=== PATIENT | female | born 1985 | race African-American/Black ===

== ENCOUNTER 2016-08-01 21:18 | Emergency (ER) | payer MEDICAID ==
[~2016-08-01] VITALS: Ht 170.2 cm; Wt 112.0 kg
[~2016-08-01 21:18] MED LIST: FLAG500T PO
[2016-08-01 21:20] VITALS: BP 174/106; PULSE 99; RESP 16; TEMP 98.7; O2SAT 97
[2016-08-01] MEDS ORDERED: MAGICADU2 SWISH-SPIT (22:18)
[2016-08-01] MEDS ORDERED: IBUP800T23 PO (22:18)
[2016-08-01] MEDS ORDERED: IBUPROFEN 800 MG TAB PO ONE (22:30)
--- NOTE | 2016-08-01 22:35 | PD ---
HPI Chief Complaint: Oral / Dental Pain or Problem Time Seen by Provider: 22:10 Travel History International Travel<30 days: No Contact w/Intl Traveler<30days: No Traveled to known affect area: No History of Present Illness HPI 31-year-old female presents for evaluation of dental pain. Symptoms started 2 weeks ago. She reports sharp pain in the left mandibular third molar which is worse when chewing. Partially relieved with Tylenol. She reports that a few weeks ago there was some soft tissue swelling around the gumline that has resolved. She has had no fevers, chills, drainage. She does endorse occasional tobacco use. She reports that she has an appointment on August 30 with a dentist. No other complaints. [facility] Past Medical History Medical History: Denies Significant Hx Asthma: Yes Anxiety: Yes Cancer: No Cardiovascular Problems: Yes (HTN) Cerebrovascular Accident: Yes (08/2013 - TIA ) Diabetes: No Diminished Hearing: No Gastrointestinal Disorders: No Genitourinary: No Headaches: Yes Hypertension: Yes Implanted Vascular Access Dvce: No Musculoskeletal: No Neurologic: Yes Psychiatric: No Reproductive: No Respiratory: Yes (ASTHMA) Immunizations Current: Yes Seizures: No Tetanus Vaccination: < 5 Years Influenza Vaccination: No ?: Unknown LMP: 1-5-17 : 4 Para: 3 Miscarriage: 1 Tubal Ligation: Yes Past Surgical History Surgical History: No Previous Surgery Other Surgery: No Family History Family Myocardial Infarction: Yes (GRANDMOTHER) Social History Alcohol Use: Yes (SOCIALLY) Tobacco Use: No Substance Use: No Allergies-Medications (Allergen,Severity, Reaction): Coded Allergies: Penicillin (Verified Allergy, Severe, Anaphylaxis, 08/01/16) Ultram (Verified Allergy, Severe, HIVES, 08/01/16) Reported Meds & Prescriptions Reported Meds & Active Scripts Active Ibuprofen 800 Mg Tab 800 Mg PO Q6HR PRN Magic Mouthwash Adult Liq (Multi-Ingredient Mouthwash/Gargle) 120 Ml Susp 5 Ml SWISH-SPIT ACHS Each 5 mL contains: Nystatin 200,000 units, Diphenhydramine 4.25 mg, Viscous Lidocaine 10 mg, Alarcon syrup 0.8 mL Review of Systems General / Constitutional: No: Fever, Chills HENT: Positive: Dental Difficulties Physical Exam Narrative GENERAL: Well-developed well-nourished female in no acute distress SKIN: Warm and dry. No facial soft tissue swelling or erythema HEAD: Atraumatic. Normocephalic. EYES: Pupils equal and round. No scleral icterus. No injection or drainage. ENT: No nasal bleeding or discharge. Mucous membranes pink and moist. Left mandibular third molar is partially erupting. It is tender to palpation. There is no erythema, induration, fluctuance, drainage or trismus. NECK: Trachea midline. No JVD. No lymphadenopathy, no submandibular edema CARDIOVASCULAR: Regular rate and rhythm. No murmur appreciated. RESPIRATORY: No accessory muscle use. Clear to auscultation. Breath sounds equal bilaterally. Data Data Last Documented VS Vital Signs Date Time Temp Pulse Resp B/P Pulse Ox O2 Delivery O2 Flow Rate FiO2 08/01/16 22:07 16 08/01/16 21:20 98.7 99 174/106 97 Room Air Orders Ibuprofen (Motrin) (08/01/16 22:30) MDM Medical Decision Making Medical Screen Exam Complete: Yes Emergency Medical Condition: Yes Medical Record Reviewed: Yes Differential Diagnosis Molar eruption, molar impaction, dental caries, periodontal abscess Narrative Course 31-year-old female presents with dental pain for 2 weeks. Examination reveals that her left mandibular third molar is partially erupting. There is no evidence of infection. Recommended outpatient follow-up with a dentist. She is being discharged with ibuprofen and Magic mouthwash for pain control. Diagnosis Primary Impression: Tooth eruption Referrals: Dentist Additional Instructions: Medication as needed. Follow up with a dentist as scheduled. Return for any emergent medical conditions. Med/Other Pt SpecificInfo: Prescription(s) given Scripts Ibuprofen 800 Mg [id number] Mg PO Q6HR PRN (PAIN) #40 TAB Ref 0 Prov:Adama Fletcher MD 08/01/16 Oorydaua-Hyyrykezxrkhbqb-Dtpfnugjd Liq (Magic Mouthwash Adult Liq)120 Ml Susp5 Ml SWISH-SPIT ACHS #240 ML Ref 0 Each 5 mL contains: Nystatin 200,000 units, Diphenhydramine 4.25 mg, Viscous Lidocaine 10 mg, Alarcon syrup 0.8 mL Prov:Adama Fletcher MD 08/01/16 Disposition: 01 DISCHARGE HOME Condition: Stable Corby Alvarez Aug 01, 2016 22:35
== END 2016-08-01 22:58 | disposition home or self-care (01) ==
LOC: NEPB 21:18
DX: K00.6 Disturbances in tooth eruption (principal); I10 Essential (primary) hypertension; Z86.73 Personal history of transient ischemic attack (TIA), and cerebral infarction without residual deficits
CPT/HCPCS: 99282

== ENCOUNTER 2016-08-15 15:27 | Emergency (ER) | payer MEDICAID ==
[~2016-08-15] VITALS: Ht 170.2 cm; Wt 110.0 kg
[~2016-08-15 15:27] MED LIST changes: -FLAG500T PO; +IBUP800T23 PO; +MAGICADU2 SWISH-SPIT
[2016-08-15 15:29] VITALS: BP 190/107; PULSE 90; RESP 12; TEMP 98.6; O2SAT 100
[2016-08-15 15:58] VITALS: BP 141/86; PULSE 86
--- NOTE | 2016-08-15 17:31 | PD ---
HPI Chief Complaint: Skin Problem Time Seen by Provider: 17:30 Travel History International Travel<30 days: No Contact w/Intl Traveler<30days: No Traveled to known affect area: No History of Present Illness HPI 31-year-old female presents to the emergency Department with complaint of right lower leg redness and swelling for 1 week after possibly being bit by a bug. Denies paresthesias, loss of sensation, decreased range of motion, decreased strength to affected extremity. Denies nausea, vomiting. Reports having fever 3 days ago and her mom gave her ibuprofen and Tylenol for the fever. Denies having fever since. Has been cleaning the area with witch tiffany with some improvement. Is not any other treatments or medications to alleviate her symptoms. Allergies to penicillin and Ultram. History of hypertension. Dr. Pablo is primary care provider. No other modifying factors or associated signs and symptoms. PFSH Past Medical History Asthma: Yes Anxiety: Yes Cancer: No Cardiovascular Problems: Yes (HTN) Cerebrovascular Accident: Yes (08/2013 - TIA ) Diabetes: No Diminished Hearing: No Gastrointestinal Disorders: No Genitourinary: No Headaches: Yes Hypertension: Yes Implanted Vascular Access Dvce: No Musculoskeletal: No Neurologic: Yes Psychiatric: No Reproductive: No Respiratory: Yes (ASTHMA) Immunizations Current: Yes Seizures: No ?: Not LMP: 08/10/16 : 4 Para: 3 Miscarriage: 1 Tubal Ligation: Yes Past Surgical History Other Surgery: No Social History Alcohol Use: Yes (SOCIALLY) Tobacco Use: No Substance Use: No Allergies-Medications (Allergen,Severity, Reaction): Coded Allergies: Penicillin (Verified Allergy, Severe, Anaphylaxis, 08/01/16) Ultram (Verified Allergy, Severe, HIVES, 08/01/16) Reported Meds & Prescriptions Reported Meds & Active Scripts Active Ibuprofen 800 Mg Tab 800 Mg PO Q6HR PRN Clindamycin (Clindamycin HCl) 150 Mg Cap 450 Mg PO Q6H 10 Days Ibuprofen 800 Mg Tab 800 Mg PO Q6HR PRN Magic Mouthwash Adult Liq (Multi-Ingredient Mouthwash/Gargle) 120 Ml Susp 5 Ml SWISH-SPIT ACHS Each 5 mL contains: Nystatin 200,000 units, Diphenhydramine 4.25 mg, Viscous Lidocaine 10 mg, Alarcon syrup 0.8 mL Review of Systems Except as stated in HPI: all other systems reviewed are Neg Physical Exam Narrative GENERAL: Well-nourished, well-developed patient, in no acute distress; afebrile , nontoxic-appearing SKIN: There is an indurated area to the lateral aspect of the right lower leg which measures about 4 cm in diameter. The area is erythemic and with warmth to touch and slightly edematous; there is a small fluctuant pustule to the area. No drainage. There is a zone of inflammation around it but no lymphangitis. HEAD: Atraumatic. Normocephalic. EYES: Pupils equal and round. No scleral icterus. No injection or drainage. ENT: Mucosa pink and moist. Airway patent. NECK: Trachea midline. CARDIOVASCULAR: Regular rate. RESPIRATORY: No accessory muscle use. GASTROINTESTINAL: Obese. MUSCULOSKELETAL: No obvious deformities. No clubbing. No cyanosis. No edema. NEUROLOGICAL: Awake and alert. Oriented 3. No obvious cranial nerve deficits. Motor grossly within normal limits. Normal speech. PSYCHIATRIC: Appropriate mood and affect; insight and judgment normal. Data Data Last Documented VS Vital Signs Date Time Temp Pulse Resp B/P Pulse Ox O2 Delivery O2 Flow Rate FiO2 08/15/16 15:58 86 141/86 08/15/16 15:29 98.6 12 100 Room Air Orders Wound Culture And Gram Stain (08/15/16 17:36) [facility] Medical Decision Making Medical Screen Exam Complete: Yes Emergency Medical Condition: Yes Medical Record Reviewed: Yes Differential Diagnosis Cellulitis, folliculitis, abscess, bug bite Narrative Course 31-year-old female with a cellulitic area to the right lower leg. There is a small pustule to the middle of the erythemic area. The pustule was broken open and a wound culture obtained. Wound culture pending. Patient is afebrile and nontoxic-appearing. Reports having fever 3 days ago. I offered the patient nonnarcotic for pain in the ear and she declined at this time. Clindamycin, ibuprofen prescribed for home. Patient is medically cleared and stable for discharge. Discussed reasons to return to the emergency department. Instructed patient to follow up with primary care provider. Patient agrees with treatment plan. The patients vital signs are stable and the patient is stable for outpatient follow-up and treatment. Patient discharged home, stable and in no acute distress. Diagnosis Primary Impression: Cellulitis of leg, right Referrals: Primary Care Physician Patient Instructions: Cellulitis (ED), General Instructions Departure Forms: Tests/Procedures, Work Release Enter return to work date: Aug 16, 2016 Additional Instructions: Complete full course of antibiotics Warm compresses to the affected area Keep area clean and dry Ibuprofen or Tylenol as instructed and as needed for pain and inflammation Follow-up with primary care provider Return to emergency department immediately with worsening of symptoms Med/Other Pt SpecificInfo: Prescription(s) given Scripts Ibuprofen 800 Mg Ogu214 Mg PO Q6HR PRN (PAIN) #30 TAB Ref 0 Prov:Flora Milner 08/15/16 Clindamycin 150 Mg [id number] Mg PO Q6H 10 Days Ref 0 Prov:Flora Milner 08/15/16 Disposition: 01 DISCHARGE HOME Condition: Stable Flroa Milner Aug 15, 2016 17:31
[2016-08-15] MEDS ORDERED: CLIN1CAP5 PO (17:32)
[2016-08-15] MEDS ORDERED: IBUP800T23 PO (17:32)
== END 2016-08-15 18:11 | disposition home or self-care (01) ==
LOC: NEPB 15:27
DX: L03.115 Cellulitis of right lower limb (principal); B95.62 Methicillin resistant Staphylococcus aureus infection as the cause of diseases classified elsewhere; I10 Essential (primary) hypertension; Z87.09 Personal history of other diseases of the respiratory system; Z86.59 Personal history of other mental and behavioral disorders; Z86.73 Personal history of transient ischemic attack (TIA), and cerebral infarction without residual deficits; Z86.69 Personal history of other diseases of the nervous system and sense organs
CPT/HCPCS: 86403; 87070; 87186; 87205; 99283

== ENCOUNTER 2016-09-14 08:35 | Emergency (ER) | payer MEDICAID ==
[~2016-09-14] VITALS: Ht 170.2 cm; Wt 115.0 kg
[~2016-09-14 08:35] MED LIST changes: +CLIN1CAP5 PO
[2016-09-14 08:37] VITALS: BP 170/102; PULSE 100; RESP 15; TEMP 98.1; O2SAT 96
[2016-09-14 10:29] LABS: BLOOD, URINE TRACE (NEG); COMMENT (UR) CULT NOT INDICATED; CULTURE IF INDICATED CULT NOT INDICATED; GLUCOSE,URINE NEG (NEG); KETONE, URINE NEG (NEG); MUCUS URINE FEW /lpf (OCC); NITRITE,URINE NEG (NEG); PH, URINE 5.5 (5.0-8.5); SQUAMOUS EPITHELIAL CELL URINE 2 /hpf (0-5); URINE COLOR YELLOW (YELLW/STRAW)
[2016-09-14] MEDS ORDERED: CYCLOBENZAPRINE HCL 10 MG TAB PO ONE (10:30)
[2016-09-14] MEDS ORDERED: KETOROLAC TROMETHAMINE 30 MG/ML (IVP) VIAL IV PUSH ONE (10:30)
[2016-09-14] MEDS ORDERED: SODIUM CHLORIDE 0.9% FLUSH 5 ML FLUSH IVF PRN (10:30)
--- NOTE | 2016-09-14 10:32 | PD ---
HPI Chief Complaint: Abdominal Pain Time Seen by Provider: 09:52 Travel History International Travel<30 days: No Contact w/Intl Traveler<30days: No Traveled to known affect area: No History of Present Illness HPI 31-year-old female presents with suprapubic abdominal pain for the past 2 days. She's been taking ibuprofen which is not helping. Patient states happened to her one time in the past and was told it was just her nerves. She states it hurts her worse when she sits up or uses her abdominal muscles. Denies any fever denies any vaginal bleeding vaginal discharge nausea vomiting diarrhea or constipation. Denies possibility of . PFSH Past Medical History Asthma: Yes Anxiety: Yes Cancer: No Cardiovascular Problems: Yes (HTN) Cerebrovascular Accident: Yes (08/2013 - TIA ) Diabetes: No Diminished Hearing: No Gastrointestinal Disorders: No Genitourinary: No Headaches: Yes Hypertension: Yes Implanted Vascular Access Dvce: No Musculoskeletal: No Neurologic: Yes Psychiatric: No Reproductive: No Respiratory: Yes (ASTHMA) Immunizations Current: Yes Seizures: No Tetanus Vaccination: < 5 Years ?: Not LMP: 08/24/16 : 4 Para: 3 Miscarriage: 1 Tubal Ligation: Yes (clamped) Past Surgical History Other Surgery: No Family History Family Myocardial Infarction: Yes (GRANDMOTHER) Social History Alcohol Use: Yes (SOCIALLY) Tobacco Use: Yes (occ) Substance Use: No Allergies-Medications (Allergen,Severity, Reaction): Coded Allergies: Penicillin (Verified Allergy, Severe, Anaphylaxis, 09/14/16) Ultram (Verified Allergy, Severe, HIVES, 09/14/16) *MDRO Multi-Drug Resistant Organism (Verified Adverse Reaction, Unknown, ) MRSA (leg wound) - 08/15/16 Reported Meds & Prescriptions Reported Meds & Active Scripts Active No Active Prescriptions or Reported Medications Review of Systems Except as stated in HPI: all other systems reviewed are Neg Physical Exam Narrative GENERAL: Well-developed well-nourished no apparent distress SKIN: Warm and dry. HEAD: Atraumatic. Normocephalic. EYES: Pupils equal and round. No scleral icterus. No injection or drainage. ENT: No nasal bleeding or discharge. Mucous membranes pink and moist. NECK: Trachea midline. No JVD. CARDIOVASCULAR: Regular rate and rhythm. No murmur appreciated. RESPIRATORY: No accessory muscle use. Clear to auscultation. Breath sounds equal bilaterally. GASTROINTESTINAL: Abdomen soft, trivially tender in the suprapubic region, nondistended. Hepatic and splenic margins not palpable. Psoas obturator signs negative, no tenderness at McBurney's point, negative Yoder sign. MUSCULOSKELETAL: No obvious deformities. No clubbing. No cyanosis. No edema. NEUROLOGICAL: Awake and alert. No obvious cranial nerve deficits. Motor grossly within normal limits. Normal speech. Ambulating in the emergency department with narrow based balance gait. PSYCHIATRIC: Appropriate mood and affect; insight and judgment normal. Data Data Last Documented VS Vital Signs Date Time Temp Pulse Resp B/P Pulse Ox O2 Delivery O2 Flow Rate FiO2 09/14/16 08:37 98.1 100 15 170/102 96 Orders Urinalysis - C+S If Indicated (09/14/16 09:31) Ed Urine Pregnancytest Poc (09/14/16 09:31) Basic Metabolic Panel (Bmp) (09/14/16 10:16) Comprehensive Metabolic Panel (09/14/16 10:16) Lipase (09/14/16 10:16) Sodium Chloride 0.9% Flush (Ns Flush) (09/14/16 10:30) Ketorolac Inj (Toradol Inj) (09/14/16 10:30) Cyclobenzaprine (Flexeril) (09/14/16 10:30) Complete Blood Count With Diff (09/14/16 11:20) Labs Laboratory Tests Test 09/14/16 10:00 Urine Color YELLOW Urine Turbidity CLEAR Urine pH 5.5 Urine Specific [place] 1.018 Urine Protein NEG mg/dL Urine Glucose (UA) NEG mg/dL Urine Ketones NEG mg/dL Urine Occult Blood TRACE Urine Nitrite NEG Urine Bilirubin NEG Urine Urobilinogen LESS THAN 2.0 MG/DL Urine Leukocyte Esterase NEG Urine RBC 1 /hpf Urine WBC 1 /hpf Urine Squamous Epithelial 2 /hpf Cells Urine Mucus FEW /lpf Microscopic Urinalysis Comment CULT NOT INDICATED MDM Medical Decision Making Medical Screen Exam Complete: Yes Emergency Medical Condition: Yes Differential Diagnosis Abdominal pain, muscle strain, urinary tract infection, . Narrative Course Patient was roomed in the emergency department, her history is highly suggestive of rectus abdominal tear. Her pain gets really intense whenever she tries to sit up. I had suggested to her on arrival she had a pelvic exam and she states she just had one and did not want to have another one. I explained to her that there is pathology of the reproductive and tract and can only be properly evaluated by pelvic exam and she continues to decline. CBC and CMP were ordered to risk stratify for intra-abdominal pathology. These labs were drawn Toradol as well as Flexeril ordered. The patient didn't person nursing station stating that she wanted to leave because things were taking too long. She wanted to go home. I reevaluated the patient and she appears uncomfortable and I explained to her that we did have pain medicine in order to just had not been given yet. She commonly and collectively stated that she still wanted to leave and go home. At this point I explained to her that her pain etiology is yet unestablished and recommended that she stay for completion of her workup psych properly identifying rule out specific pathology. She verbalized understanding of her risk of leaving AMA without proper workup for abdominal pain including , disability, organ failure. She still would like to go home and is accepted this risk. She is sign formal AMA papers. I explained to her that if her pain worsens or she have any other concerning signs symptoms she is welcome to return at any time. She ambulated from the emergency department in no apparent distress. Diagnosis Primary Impression: Abdominal pain Qualified Code: R10.13 - Epigastric pain Scripts No Active Prescriptions or Reported Meds Disposition: 07 AGAINST MEDICAL ADVICE Condition: Joon Simon MD Sep 14, 2016 10:32
[2016-09-14 11:30] LABS: ALKALINE PHOSPHATASE 80 U/L (45-117); ALT (GPT) 17 U/L (10-53); ANION GAP 7 MEQ/L (5-15); AST (GOT) 11 U/L (15-37); BICARBONATE 24.8 MEQ/L (21.0-32.0); BLOOD UREA NITROGEN 13 MG/DL (7-18); CHLORIDE 109 MEQ/L (98-107); GLOMERULAR FILTRATION RATE 138 ML/MIN (>89); POTASSIUM 4.5 MEQ/L (3.5-5.1); SODIUM (NA) 141 MEQ/L (136-145); TOTAL BILIRUBIN ADULT 0.5 MG/DL (0.2-1.0)
== END 2016-09-14 11:30 | disposition left against medical advice (07) ==
LOC: NEPB 08:35
DX: R10.13 Epigastric pain (principal); I10 Essential (primary) hypertension; Z72.0 Tobacco use; Z53.29 Procedure and treatment not carried out because of patient's decision for other reasons; Z87.09 Personal history of other diseases of the respiratory system; Z86.59 Personal history of other mental and behavioral disorders; Z86.79 Personal history of other diseases of the circulatory system; Z86.73 Personal history of transient ischemic attack (TIA), and cerebral infarction without residual deficits; Z86.69 Personal history of other diseases of the nervous system and sense organs
CPT/HCPCS: 80053; 81001; 83690; 84703; 99284

== ENCOUNTER 2016-12-21 19:45 | Emergency (ER) | payer OTHER, MEDICAID ==
[2016-12-21 19:48] VITALS: BP 175/101; PULSE 94; RESP 18; TEMP 98.2; O2SAT 97
[2016-12-22] MEDS ORDERED: DICL75TA PO (00:39)
[2016-12-22] MEDS ORDERED: CYCL1TAB29 PO (00:39)
== END 2016-12-21 20:55 | disposition left against medical advice (07) ==
LOC: NED 19:45
DX: Z04.1 Encounter for examination and observation following transport accident (principal)
CPT/HCPCS: 99281

== ENCOUNTER 2016-12-21 23:33 | Emergency (ER) | payer OTHER, MEDICAID ==
[~2016-12-21] VITALS: Ht 175.3 cm; Wt 99.0 kg
[2016-12-21 23:36] VITALS: BP 187/109; PULSE 94; RESP 18; TEMP 98.1; O2SAT 96
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
[2016-12-22] MEDS ORDERED: CYCL1TAB29 PO (00:39)
[2016-12-22] MEDS ORDERED: DICL75TA PO (00:39)
[2016-12-22] MEDS ORDERED: CYCLOBENZAPRINE HCL 10 MG TAB PO ONE (00:45)
[2016-12-22] MEDS ORDERED: IBUPROFEN 800 MG TAB PO ONE (00:45)
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
== END 2016-12-22 01:21 | disposition home or self-care (01) ==
LOC: NEPD 23:33
DX: S13.9XXA Sprain of joints and ligaments of unspecified parts of neck, initial encounter (principal); J45.909 Unspecified asthma, uncomplicated; I10 Essential (primary) hypertension; Z86.73 Personal history of transient ischemic attack (TIA), and cerebral infarction without residual deficits; Z72.0 Tobacco use; V43.52XA Car driver injured in collision with other type car in traffic accident, initial encounter; Y93.89 Activity, other specified; Y92.410 Unspecified street and highway as the place of occurrence of the external cause; Y99.8 Other external cause status
CPT/HCPCS: 72040; 99284

== ENCOUNTER 2017-06-30 08:12 | Emergency (ER) | payer MEDICAID ==
[~2017-06-30] VITALS: Ht 170.2 cm; Wt 103.0 kg
[~2017-06-30 08:12] MED LIST changes: -CLIN1CAP5 PO; +CYCL10TA PO; +DICL75TA PO; -IBUP800T23 PO; -MAGICADU2 SWISH-SPIT
[2017-06-30 08:14] VITALS: BP 198/112; PULSE 104; RESP 18; TEMP 98.2; O2SAT 98
--- NOTE | 2017-06-30 08:19 | PD ---
HPI Chief Complaint: Injury Time Seen by Provider: 08:18 Travel History International Travel<30 days: No Contact w/Intl Traveler<30days: No Traveled to known affect area: No History of Present Illness HPI 32 YO F presents to the ED for evaluation of 10/10 throbbing left foot pain. Onset just before arrival after dropping a pot of oatmeal on her foot at work this morning. Has been ambulatory since the accident. Pain is centered in the great toe and worsened by ambulation and attempted range of motion. She was wearing close toed shoes and socks at the time. Denies thermal injury. Patient denies previous injury to the area. Patient drove herself to the emergency room. No treatment attempted before arrival. PFSH Past Medical History Asthma: Yes Anxiety: Yes Cancer: No Cardiovascular Problems: Yes (HTN) Cerebrovascular Accident: Yes (08/2013 - TIA ) Diabetes: No Diminished Hearing: No Gastrointestinal Disorders: No Genitourinary: No Headaches: Yes Hypertension: Yes Implanted Vascular Access Dvce: No Musculoskeletal: No Neurologic: Yes Psychiatric: No Reproductive: No Respiratory: Yes (ASTHMA) Immunizations Current: Yes Seizures: No ?: Not : 4 Para: 3 Miscarriage: 1 Tubal Ligation: Yes (clamped) Past Surgical History Other Surgery: No Social History Alcohol Use: Yes (SOCIALLY) Tobacco Use: Yes (occ) Substance Use: No Allergies-Medications (Allergen,Severity, Reaction): Coded Allergies: tramadol (Unverified Allergy, Severe, HIVES, 06/30/17) *MDRO Multi-Drug Resistant Organism (Verified Adverse Reaction, Unknown, 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 SKIN: Focused skin assessment warm/dry. Tattoos noted. HEAD: Normocephalic. EYES: No scleral icterus. No injection or drainage. NECK: Supple, trachea midline. No JVD or lymphadenopathy. CARDIOVASCULAR: Regular rate and rhythm without murmurs, gallops, or rubs. RESPIRATORY: Breath sounds equal bilaterally. No accessory muscle use. GASTROINTESTINAL: Abdomen soft, non-tender, nondistended. MUSCULOSKELETAL: No cyanosis, or edema. FOCUSED LEFT LOWER EXTREMITY EXAM: 2+ DP pulse. Tender to palpation at the MP joint of the great toe. Patient is able to wiggle the toes. Sensation intact to light touch distally. Patient is observed to walk with a limp. BACK: Nontender without obvious deformity. No CVA tenderness. Data Data Last Documented VS Vital Signs Date Time Temp Pulse Resp B/P (MAP) Pulse Ox O2 Delivery O2 Flow Rate FiO2 06/30/17 08:14 98.2 104 18 198/112 (140) 98 Orders Orders Ice/Cold Pack (06/30/17 08:21) Ibuprofen (Motrin) (06/30/17 08:30) Foot, Complete ([id number]) (06/30/17 09:19) Shoe Post Op (06/30/17 ) Ed Discharge Order (06/30/17 09:43) MDM Medical Decision Making Medical Screen Exam Complete: Yes Emergency Medical Condition: Yes Differential Diagnosis Contusion versus fracture versus dislocation versus other Narrative Course 32 YO F presents to the ED for evaluation of 10/10 throbbing right foot pain. Onset just before arrival after dropping a pot of oatmeal on her foot at work this morning. The patient was wearing close to choose and socks. Denies thermal injury. Has been ambulatory since the accident. Patient drove herself to the emergency room. Vitals reviewed. Physical exam reveals tenderness to palpation at the MP joint of the great toe. Neurovascularly intact. Ice pack was applied. Patient was administered 100 mg ibuprofen. X-ray reveals no acute fracture, dislocation by my reading. This is a contusion. Patient was provided with a postop shoe. She is provided with a short course of anti- inflammatories. She is instructed to rest, ice, elevate the extremity, return to normal, gentle activities as tolerated, follow up with the primary care provider or orthopedist should symptoms persist. She is stable and discharged home. Diagnosis Primary Impression: Contusion of left foot, initial encounter Referrals: Primary Care Physician Patient Instructions: Foot Contusion (ED), General Instructions Additional Instructions: Rest, ice, elevate the extremity. Apply ice no longer than 10-15 minutes per hour a few times a day. 800 mg ibuprofen up to 3 times a day as needed for pain. Return to normal, gentle activity as tolerated. No running, jumping activities for the next few weeks. Follow up with orthopedist or your primary care provider. Return to the ED for any urgent or emergent medical condition. Med/Other Pt SpecificInfo: Prescription(s) given Scripts Ibuprofen (Ibuprofen) 800 Mg Tab 800 MG PO Q8H Y for Pain/Inflammation, #15 TAB 0 Refills Prov: Laura Ortega MD 06/30/17 Disposition: 01 DISCHARGE HOME Condition: Stable Natasha Tello Jun 30, 2017 08:19
[2017-06-30] MEDS ORDERED: IBUPROFEN 800 MG TAB PO ONE (08:30)
[2017-06-30] MEDS ORDERED: IBUP1TAB7 PO (09:42)
--- NOTE | 2017-06-30 09:43 | RADRPT ---
EXAM DATE/TIME: 06/30/2017 09:20 [facility] COMPARISON: No previous studies available for comparison. INDICATIONS : Pain from dropping object on foot. MEDICAL HISTORY : None. SURGICAL HISTORY : None. ENCOUNTER: Initial ACUITY: 1 day PAIN SCORE: 9/10 LOCATION: Left medial foot. FINDINGS: Three view examination of the left foot demonstrates no soft tissue swelling, dislocation, or fractur e. The tarsal bones appear intact. The interphalangeal and metatarsophalangeal joints are intact. The calcaneus is intact. Bony mineralization is normal. CONCLUSION: Negative for fracture or dislocation. Follow up in 7-10 days is suggested if symptoms persist. David Gtz MD FACR on June 30, 2017 at 9:40 Board Certified Radiologist. This report was verified electronically.
== END 2017-06-30 09:52 | disposition home or self-care (01) ==
LOC: NEPD 08:12
DX: S90.32XA Contusion of left foot, initial encounter (principal); W20.8XXA Other cause of strike by thrown, projected or falling object, initial encounter
CPT/HCPCS: 73630; 99283